=== PATIENT | male | born 1945 | race Caucasian/White ===

== ENCOUNTER → 2023-09-25 09:00 | Outpatient (REF) | payer OTHER, SELFPAY | LOC: DHSLP 09:00 | PROVIDERS: ATTENDING PHYSICIAN Internal Medicine | DX: G47.33 Obstructive sleep apnea (adult) (pediatric) (principal) | CPT/HCPCS: 95800 ==

== ENCOUNTER 2024-11-03 08:04 | Inpatient (IN) | payer OTHER, SELFPAY ==
[2024-11-03] VITALS (15 sets, daily range): BP systolic 140–200; BP diastolic 86–107; BMI 26.1
[2024-11-03 01:09] LABS: Glucose - Point of Care 159 mg/dl (70-99)
[2024-11-03 02:09] LABS: Glucose - Point of Care 128 mg/dl (70-99)
[2024-11-03] MEDS: OMNIPAQUE 50 ML PO (02:39)
[2024-11-03 02:54] LABS: Hematocrit 45.6 % (39.0-52.0); Hemoglobin 14.9 g/dL (13.0-18.0); Mean Corp Hgb Conc. 32.7 g/dL (33.0-37.0); Mean Corpuscular Volume 94.4 fL (80.0-94.0); Platelet Count 364 10^3/uL (130-400); Red Cell Dist. Width 13.5 % (11.5-14.5)
[2024-11-03 03:06] LABS: Glucose - Point of Care 167 mg/dl (70-99)
--- NOTE | 2024-11-03 03:08 | ED.GENMED ---
History of Present Illness
<Lissett Thompson MD - Last Filed: 11/03/24 10:24>
General
Chief Complaint: Blood Sugar Problem
Source: patient
Time Seen by Provider: 11/03/24 02:03
History of Present Illness
History of Present Illness:
This patient is an 78-year-old male with a history of pancreas removal years ago, tightly controlled diabetes with an insulin pump, states that he had an episode of hypoglycemia at approximate 11 PM tonight when his blood sugar was noted to be 26.
EMS was called and he consumed glucose and his repeat blood sugar was 150. EMS left. Then, about an hour later, he noted that his blood sugar was 83, which concerned him given that it was such a precipitous drop in his blood sugar in just an hour.
He presents emergency department because of this concern. Additionally, he notes that his abdomen feels generally bloated associated with nausea and dry heaves with started tonight. He denies fever, chills, chest pain, shortness of breath,
urinary symptoms, diarrhea, constipation. We just checked his blood sugar at 2 AM and it was noted to be 128. Patient does note that last week he was on a Medrol Dosepak which she finished on Saturday and made appropriate adjustments to his
insulin regimen. He denies the use of oral agents for diabetes.
Past History
<Lissett Thompson MD - Last Filed: 11/03/24 10:24>
Past History
ED Past Medical History: HTN and Other (Diabetes)
ED Past Surgical History: Other (Pancreas removal)
Patient has exhibited threatening behavior?: No
Social History
Tobacco: Non-smoker
Alcohol: Occasional
Drug: None
Personal:
Living: with family
Employment: Employed
Family History
Family History: Other (Noncontributory)
Phy Exam
<Lissett Thompson MD - Last Filed: 11/03/24 10:24>
Physical Exam
Physical Exam:
GENERAL: Alert , in no apparent distress
EYE: pupils equal and reactive
NECK: Supple, no significant adenopathy.
ENT: o/p clr, mmm.
CARDIAC: Regular rate and rhythm .
LUNGS: Clear breath sounds bilaterally, no acute respiratory distress, no wheezes/rales/rhonchi
ABDOMEN: Soft, nonspecific mild tenderness, no r/g, no cvat
NEUROLOGICAL: Alert and oriented, no focal neuro deficits
SKIN: Warm and dry, skin intact.
MUSCULOSKELETAL: No edema, well perfused.
PSYCH: Normal and appropriate interaction.
Course
<Lissett Thompson MD - Last Filed: 11/03/24 10:24>
Orders/Labs/Results
Orders:
Orders
11/03/24 02:19
CT Abd/pel (oral only)-[facility] Only Urgent
Comment:
Reason For Exam: hx whipple, now abd distention/n
Iohexol [Omnipaque] See Protocol PO NOW STA
11/03/24 02:42
Complete Blood Count/No Diff Urgent
Comprehensive Metabolic Panel Urgent
11/03/24 05:37
NG Tube [GI tube insertion- Treatment] ONCE
11/03/24 07:27
Admit/Transfer Patient As Directed
Co-Sign Provider:
Level of Care: Inpatient admission
Assign to:: Telemetry
Physician / Group: gorge/hospitalist
Diagnosis: jarrell CARRERO 2011
Reason for Telemetry: Arrhythmia
Date to Stop Telemetry: 11/06/24
Time to Stop Telemetry: 11:00
Reason for Hospitalization: jarrell CARRERO 2011
Expected length of stay greater than two midnights?: Yes
ELOS- Estimated Length of Stay in days: 3
I certify the patient meets the requirements for IP care: Yes
11/03/24 07:28
PRN Pain Medication Management As Directed
May give lesser potent ordered pain med per pt: Yes
preference::
Protocol:: Medication orders for pain may be administered in a
manner that supports deferring to patient preference
when the pt is:
- Requesting an ordered lesser potent pain medication.
Least to most potent pain medications are defined
as: acetaminophen < NSAID < tramadol < opioids
(morphine, oxycodone, hydromorphone).
- Requesting a lesser dose of the same medication IF
ORDERED.
- Requesting a less intrusive route of administration
if both routes are prescribed by the provider (PO <
IV).
11/03/24 07:29
Code Status As Directed
Resuscitation Status: Full Code
11/03/24 07:[address] Non Medication Order As Directed
Physician Order: Please reconcile, have Pharmacy reconcile med list this am, and call attending once updated
to have them order home meds .
11/06/24 11:00
DC Protocol for Telemetry ONCE
Abnormal Lab Results
11/03/24 11/03/24 11/03/24
01:08 02:07 02:42
WBC 12.3 H 10^3/uL
(4.8-10.8)
MCV 94.4 H fL
(80.0-94.0)
MCHC 32.7 L g/dL
(33.0-37.0)
MPV 10.9 H fL
(7.4-10.4)
Carbon Dioxide 35 H mmol/L
(22-30)
BUN 27 H mg/dl
(9-20)
POC Glucose 159 H mg/dl 128 H mg/dl
(70-99) (70-99)
11/03/24 11/03/24
03:04 04:27
WBC
MCV
MCHC
MPV
Carbon Dioxide
BUN
POC Glucose 167 H mg/dl 224 H mg/dl
(70-99) (70-99)
11/03/24 02:42
11/03/24 02:42
Vital Signs
Initial and Last Documented VS:
Initial Vital Signs
BP
140/99
11/03/24 01:04
Last Documented Vital Signs
Temp Pulse Resp BP Pulse Ox
98.7 F 69 21 153/95 97
11/03/24 08:23 11/03/24 08:23 11/03/24 08:23 11/03/24 08:23 11/03/24 08:23
<Bryan Dukes, DO - Last Filed: 11/03/24 05:38>
Orders/Labs/Results
Orders:
Orders
11/03/24 02:19
CT Abd/pel (oral only)-[facility] Only Urgent
Comment:
Reason For Exam: hx whipple, now abd distention/n
Iohexol [Omnipaque] See Protocol PO NOW STA
11/03/24 02:42
Complete Blood Count/No Diff Urgent
Comprehensive Metabolic Panel Urgent
11/03/24 05:37
NG Tube [GI tube insertion- Treatment] ONCE
11/03/24 07:27
Admit/Transfer Patient As Directed
Co-Sign Provider:
Level of Care: Inpatient admission
Assign to:: Telemetry
Physician / Group: gorge/hospitalist
Diagnosis: jarrell CARRERO 2011
Reason for Telemetry: Arrhythmia
Date to Stop Telemetry: 11/06/24
Time to Stop Telemetry: 11:00
Reason for Hospitalization: jarrell CARRERO 2011
Expected length of stay greater than two midnights?: Yes
ELOS- Estimated Length of Stay in days: 3
I certify the patient meets the requirements for IP care: Yes
11/03/24 07:28
PRN Pain Medication Management As Directed
May give lesser potent ordered pain med per pt: Yes
preference::
Protocol:: Medication orders for pain may be administered in a
manner that supports deferring to patient preference
when the pt is:
- Requesting an ordered lesser potent pain medication.
Least to most potent pain medications are defined
as: acetaminophen < NSAID < tramadol < opioids
(morphine, oxycodone, hydromorphone).
- Requesting a lesser dose of the same medication IF
ORDERED.
- Requesting a less intrusive route of administration
if both routes are prescribed by the provider (PO <
IV).
11/03/24 07:29
Code Status As Directed
Resuscitation Status: Full Code
11/03/24 07:[address] Non Medication Order As Directed
Physician Order: Please reconcile, have Pharmacy reconcile med list this am, and call attending once updated
to have them order home meds .
11/06/24 11:00
DC Protocol for Telemetry ONCE
Abnormal Lab Results
11/03/24 11/03/24 11/03/24
01:08 02:07 02:42
WBC 12.3 H 10^3/uL
(4.8-10.8)
MCV 94.4 H fL
(80.0-94.0)
MCHC 32.7 L g/dL
(33.0-37.0)
MPV 10.9 H fL
(7.4-10.4)
Carbon Dioxide 35 H mmol/L
(22-30)
BUN 27 H mg/dl
(9-20)
POC Glucose 159 H mg/dl 128 H mg/dl
(70-99) (70-99)
11/03/24 11/03/24
03:04 04:27
WBC
MCV
MCHC
MPV
Carbon Dioxide
BUN
POC Glucose 167 H mg/dl 224 H mg/dl
(70-99) (70-99)
11/03/24 02:42
11/03/24 02:42
Vital Signs
Initial and Last Documented VS:
Initial Vital Signs
BP
140/99
11/03/24 01:04
Last Documented Vital Signs
Temp Pulse Resp BP Pulse Ox
98.7 F 69 21 153/95 97
11/03/24 08:23 11/03/24 08:23 11/03/24 08:23 11/03/24 08:23 11/03/24 08:23
<Lissett Thompson MD - Last Filed: 11/03/24 10:24>
*Pulse Oximetry
SaO2: 95
Oxygen Mode of Delivery: Room air
<Bryan Dukes DO - Last Filed: 11/03/24 05:38>
*Pulse Oximetry
Patient hypoxic: no
*Critical Care Note
Total Time (30-74mins, 75-104mins- exclusive of procedures): Not Applicable
<Lissett Thompson MD - Last Filed: 11/03/24 10:24>
Update Note
Update Note:
Patient presents to the Emergency Department with _hypoglycemia
Number and Complexity of Problems Addressed at the Encounter
� Chronic conditions affecting care:
� Acute Exacerbation and/or Progression of Chronic Illness:
� Differential Diagnosis includes: But not limited to pump malfunction, acute infectious illness, intra-abdominal infection, etc. etc.
Amount and/or Complexity of Data to be Reviewed and Analyzed
� I performed an independent evaluation of and my interpretation is:
EKG:
CT:
Xrays:
Laboratory Studies: Mild leukocytosis
Other:
� Review of other/old records reveals:
� Clinical information was obtained by an independent historian:
� Prescriptions/Medications Considered but not given:
� Further testing considered but not performed:
Risk of Complications and/or Morbidity or Mortality of Patient Management
� Social determinants of health affecting care:
� Discussion with other providers (PCP, Hospitalists, Consultants, etc):
� Escalation of care including admission/observation vs risk of discharge considered:*Late entry 1024am on 11/03. Pt signed out pending CT at approx 4am to Dr Dukes.
5:37 AM care of patient was transition pending CT. CT concerning for small bowel obstruction. Will place NG tube. Patient understands and is comfortable with admission
<Bryan Dukes, DO - Last Filed: 11/03/24 05:38>
Update Note
Update Note:
Patient presents to the Emergency Department with _hypoglycemia
Number and Complexity of Problems Addressed at the Encounter
� Chronic conditions affecting care:
� Acute Exacerbation and/or Progression of Chronic Illness:
� Differential Diagnosis includes: But not limited to pump malfunction, acute infectious illness, intra-abdominal infection, etc. etc.
Amount and/or Complexity of Data to be Reviewed and Analyzed
� I performed an independent evaluation of and my interpretation is:
EKG:
CT:
Xrays:
Laboratory Studies: Mild leukocytosis
Other:
� Review of other/old records reveals:
� Clinical information was obtained by an independent historian:
� Prescriptions/Medications Considered but not given:
� Further testing considered but not performed:
Risk of Complications and/or Morbidity or Mortality of Patient Management
� Social determinants of health affecting care:
� Discussion with other providers (PCP, Hospitalists, Consultants, etc):
� Escalation of care including admission/observation vs risk of discharge considered:
5:37 AM care of patient was transition pending CT. CT concerning for small bowel obstruction. Will place NG tube. Patient understands and is comfortable with admission
ED Attending Note
<Lissett Thompson MD - Last Filed: 11/03/24 10:24>
-
Portions of this chart may have been created with voice recognition software.� Occasional wrong word or��sound alike� substitutions may have occurred due to the inherent limitations of voice recognition software.
Discharge Plan
Departure
Patient Disposition: Admit
Date of Disposition: 11/03/24
Time of Disposition: 05:37
Admit to: Med/Surg
Presentation/result/management discussed w/ accepting MD/DO: Hospitalist
Discharge Problem:
SBO (small bowel obstruction)
Interventions
Interventions:
*Risk Screen - Suicide Last Done: 11/03/24 01:18
*General Assessment Last Done: 11/03/24 01:18
*Neglect/Abuse Screening Last Done: 11/03/24 01:18
*ED- Fall Risk Assessment Last Done: 11/03/24 01:18
*ED COVID-19 Vaccine History Last Done: 11/03/24 01:18
ED- Neurological Assessment Last Done: 11/03/24 08:23
[2024-11-03 03:15] LABS: ALT (SGPT) 37 U/L (0-50); AST (SGOT) 39 U/L (17-59); Albumin 4.6 g/dl (3.5-5.0); Alkaline Phosphatase 63 U/L (38-126); Blood Urea Nitrogen 27 mg/dl (9-20); Calcium 9.9 mg/dl (8.4-10.2); Carbon Dioxide 35 mmol/L (22-30); Chloride 103 mmol/L (98-107); Estimated Creatinine Clearance 70 ml/min; Glucose 72 mg/dl (70-99); Potassium 4.1 mmol/L (3.5-5.1); Sodium 145 mmol/L (135-145); Total Protein 8.2 g/dl (6.3-8.2); eGFR > 60.00
[2024-11-03 04:28] LABS: Glucose - Point of Care 224 mg/dl (70-99)
--- NOTE | 2024-11-03 06:41 | HPS.HSE ---
Family Physician
-
Family Physician: Deep Bell
Chief Complaint
-
Labile blood sugar, nausea, and abdominal bloating
History of Present Illness
The patient is an 78-year-old gentleman with past medical history significant for Whipple procedure for pancreatic cancer in 2011, tightly controlled diabetes on an insulin pump, presented to the emergency department secondary to an episode of
hypoglycemia at 11 PM with blood sugar at 26. The patient called EMS, he received dextrose, and BS increased to 150. At that time EMS left, pt refused transfer to hospital, however an hour later the patient's blood sugar dropped to 83. The low
glucose was in addition to abdominal bloating, nausea and dry heaves that also started this past evening after eating at 3 pm. He denies any fevers, no chest pain, no shortness of breath, no urinary symptoms, no diarrhea, no blood loss, no
constipation. WBC is 12.3, CT scan of the abdomen and pelvis preliminary read shows distended stomach with multiple dilated loops of small bowel suspicious for obstruction.
NG tube was placed in the ED.
Medical History
Past Medical History
Past Medical History: Reports Cancer (Whipple procedure years ago for pancreatic cancer 2011), HTN, Hypothyroidism and IDDM (Insulin pump)
Past Surgical History: Reports Other (ipple 2011)
Social History
Tobacco: Non-smoker
Alcohol: None
Drug: None
Personal:
Living: With Family
Family History
Family History: Not pertinent
Allergies / Home Medications
Allergies reflects when Allergies were last updated in [facility].
Home Medications with original date entered in [facility]
Allergy/Medication List:
Allergies
Allergy/AdvReac Type Severity Reaction Status Date / Time
acetaminophen (From Percocet) Allergy hypotension Verified 06/26/22 03:05
azithromycin (From Zithromax) Allergy ARF Verified 06/26/22 03:05
cefaclor (From Ceclor) Allergy Hives Verified 06/26/22 03:05
celecoxib (From Celebrex) Allergy Rash Verified 06/26/22 03:05
diphenhydramine HCl (From Allergy Rash Verified 06/26/22 03:05
Benadryl)
fluticasone propionate (From Allergy Swelling Verified 06/26/22 03:05
Flonase)
midazolam HCl (From Versed) Allergy hypotension Verified 06/26/22 03:05
oxycodone HCl (From Percocet) Allergy hypotension Verified 06/26/22 03:05
Home Medications
Calcium 1 tab PO DAILY 05/28/10
Natural Fish Oil 15 ml PO DAILY 05/28/10
SENOKOT PRN constipation 05/28/10
Vitamin B 1 tab PO DAILY 05/28/10
amlodipine 10 mg tablet 10 mg PO DAILY 05/28/10
ascorbic acid (vitamin C) 1,000 mg tablet,extended release (Vitamin C ER) 1,000 mg PO DAILY 05/28/10
aspirin 81 mg tablet,delayed release 81 mg PO DAILY 05/28/10
docusate sodium 100 mg capsule (Dulcolax Stool Softener (docusate)) 100 mg PO PRN constipation 05/28/10
labetalol 200 mg tablet 200 mg PO BID 05/28/10
levothyroxine 100 mcg tablet (Synthroid) 100 mcg PO MOTUTHFRSA 05/28/10
levothyroxine 50 mcg tablet (Synthroid) 50 mcg PO SUWE 05/28/10
multivitamin (Pjy-Mevaeu-Njrvx tablet) 1 ea PO DAILY 05/28/10
pramipexole 0.25 mg tablet 0.25 mg PO QPM 05/28/10
sertraline 50 mg tablet 50 mg PO QPM 05/28/10
valsartan 80 mg tablet 80 mg PO DAILY 05/28/10
ciprofloxacin HCl 0.3 % eye drops (Ciloxan) 1 drp OPHTHALMIC .Q4H WHILE AWAKE #5 mL 01/30/14
tobramycin 0.3 %-dexamethasone 0.1 % eye drops,suspension 2 drp otic (ear) QID ##1 04/04/20
Review of Systems
-
A 12 point ROS was completed and negative except as noted: Yes
Physical Exam
Vital Signs
Vital Signs
Temp Pulse Resp BP Pulse Ox
97.6 F 66 14 168/88 95
11/03/24 01:18 11/03/24 06:00 11/03/24 06:00 11/03/24 06:00 11/03/24 06:00
Physical Exam
General: Well Developed, Well Nourished, No Apparent Distress, Comfortable and Conversant
HEENT: NormoCephalic, Anicteric and Moist mucous membranes
Respiratory: Clear
Cardiac: S1/S2 and Murmur
GI: Non Tender, Distended and Other (decreased bowel sounds, tinkling bowel sounds)
Musculoskeletal: No Clubbing, No Cyanosis and No Edema
Skin: Warm and Dry
Neuro: AO x 3 and No Motor Deficits
Psych: Calm
Laboratory Results
-
11/03/24 02:42
11/03/24 02:42
Laboratory Results
Total Bilirubin 0.7 mg/dl (0.2-1.3) 11/03/24 02:42
AST 39 U/L (17-59) 11/03/24 02:42
ALT 37 U/L (0-50) 11/03/24 02:42
Alkaline Phosphatase 63 U/L (38-126) 11/03/24 02:42
Data Reviewed
-
CT Scan: Report Reviewed by me (CT report as per below)
Impression/Plan
-
IMPRESSION:The patient is an 78-year-old gentleman with past medical history significant for Whipple procedure for pancreatic cancer in 2011, tightly controlled diabetes on an insulin pump, presented to the emergency department secondary to an
episode of hypoglycemia at 11 PM with blood sugar at 26. The patient called EMS, he received dextrose, and BS increased to 150. At that time EMS left, pt refused transfer to hospital, however an hour later the patient's blood sugar dropped to 83.
The low glucose was in addition to abdominal bloating, nausea and dry heaves that also started this past evening after eating at 3 pm. He denies any fevers, no chest pain, no shortness of breath, no urinary symptoms, no diarrhea, no blood loss, no
constipation. WBC is 12.3, CT scan of the abdomen and pelvis preliminary read shows distended stomach with multiple dilated loops of small bowel suspicious for obstruction.
NG tube was placed in the ED.
# Abdominal pain, concern for small bowel obstruction, associated with leukocytosis and abdominal distension w decreased bowel sounds
- Preliminary read on CT of the abdomen pelvis shows stomach distended with multiple dilated loops of small bowel suspicious for obstruction.
- NG tube ordered in place in the emergency department intermittent low wall suction
- N.p.o.
- IV fluids
- Surgery consultation
-GI consultation, Dr. Esqueda is his GI specialist
# History of pancreatic cancer status post Whipple procedure
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
-will continue to use his home insulin pump and monitor glucose on home sensor
#Essential HTN
#Hypothyroidism
Med rec to be performed this am by pharmacy-perform med rec and adjust home meds
DVT proph-SCDs
Full Code
--- NOTE | 2024-11-03 08:58 | CM ---
CM reviewed chart and met with pt bedside in ED. Lives with his and MIL in 2 story home, [address], first floor half BA, second floor BR/full BA. Independent in ADLs, personal care and ambulation at baseline. Has stair glide.
No hx VN but is familiar with [facility], no hx SNF
PCP: Deep Bell
Pharmacy: [facility]
CM will continue to follow for discharge planning needs.
--- NOTE | 2024-11-03 09:18 | CON.GI ---
Medical History
Chief Complaint / HPI
Chief Complaint: Labile blood sugar levels, abdominal pain associated with nausea
History of Present Illness:
Patient is an 78-year-old male with past medical history of pancreatic cancer, underwent Whipple's procedure with splenectomy, cholecystectomy, entire pancreas removal and removed portion of small at this time. He has been on insulin pump since
2011 and has had no issues with his blood sugar with occasional sensor issues he has been doing well with that. He also has past medical history of hypothyroidism, polymyalgia rheumatica treated with steroids, fibromyalgia, essential hypertension,
restless leg syndrome, BPH, hypothyroidism, and recently finished Medrol pack for gout flare of right knee.
He was in his usual state of health last night around 9 PM, and he was doing his leg regular chores when he suddenly felt very sick, it almost felt like something did not went well with his stomach, he had his dinner around 5 to 6 PM. He checked
his blood sugar and it was 23 so they called the EMS. They gave him IV dextrose and asked him to eat something in front of them. He ate a bagel with cream cheese, which apparently he had been ate but did not remember at this time because he was so
out of it. He felt fine after that and he did not want to go to the hospital also the EMS went back. Later that night around 2 AM he felt very sick again and he felt like his stomach was very bloated and distended and he felt nauseous and at that
time he checked his blood sugar and he noticed a precipitous fall in his blood sugar. He decided to come to the ER and was brought to the ER by EMS.
Abdominal imaging done in the ERFor abdominal CT, patient had to drink contrast in the ER which made him vomit and that made him feel a little better. Imaging results were consistent with small bowel obstruction given dilated small bowel loops,
leukocytosis on blood work, distended and tender abdomen so an NG tube was passed for suspected small bowel obstruction.
He has had about 500 mL of NG output since 3 AM and has been feeling fine. His abdomen is still diffusely tender but it is very very mild as compared to before. It still distended but he feels that it is at his baseline.
Of note, patient was having difficulties with bowel movements while he was using a lot of Colace to help with bowel movement. His last bowel movement was yesterday morning. He also noticed that due to his lack of pancreas his stools were initially
a silvery color but now he noticed that they were getting darker in color but he did not feel that they were black or had any blood. He thought it was normal brown color due to using a lot of orange juice and proteins.
Past Medical History
Past Medical History: Other (Cancer (Whipple procedure years ago for pancreatic cancer 2011), HTN, Hypothyroidism and IDDM (Insulin pump) since 2011, restless leg syndrome, fibromyalgia, prior history of polymyalgia rheumatica, gout)
Past Surgical History: Other ((Whipple 2011))
Social History
Tobacco: Former Smoker (Quit 20 years ago)
Alcohol: Daily (About 2 beers a day, considering to quit)
Drug: None
Personal:
Living: With Family (Lives with and [id number], and his cat Sheila)
Family History
Family History: Reviewed & Not Pertinent
Allergies / Home Medications
Allergy/AdvReac Type Severity Reaction Status Date / Time
acetaminophen (From Percocet) Allergy hypotension Verified 06/26/22 03:05
azithromycin (From Zithromax) Allergy ARF Verified 06/26/22 03:05
cefaclor (From Ceclor) Allergy Hives Verified 06/26/22 03:05
celecoxib (From Celebrex) Allergy Rash Verified 06/26/22 03:05
diphenhydramine HCl (From Allergy Rash Verified 06/26/22 03:05
Benadryl)
fluticasone propionate (From Allergy Swelling Verified 06/26/22 03:05
Flonase)
midazolam HCl (From Versed) Allergy hypotension Verified 06/26/22 03:05
oxycodone HCl (From Percocet) Allergy hypotension Verified 06/26/22 03:05
�Medication �Instructions �Recorded
labetalol 200 mg tablet 400 mg PO BID 05/28/10
sertraline 50 mg tablet 50 mg PO HS 05/28/10
Patient Own Insulin Pump 1 sliding scale dose SC .NOVOLOG 11/03/24
amlodipine 5 mg tablet (Norvasc) 5 mg PO BID 11/03/24
chlorthalidone 50 mg tablet 50 mg PO DAILY 11/03/24
cholecalciferol (vitamin D3) 125 250 mcg PO DAILY 11/03/24
mcg (5,000 unit) tablet (Vitamin
D3)
coQ10 (ubiquinol) 100 mg capsule 100 mg PO HS 11/03/24
ferrous sulfate 325 mg (65 mg 325 mg PO BID 11/03/24
iron) tablet
finasteride 5 mg tablet 5 mg PO QPM 11/03/24
levothyroxine 150 mcg tablet 150 mcg PO MoTuWeThFrSa@79911/03/24
(Synthroid)
levothyroxine 150 mcg tablet 225 mcg PO NESS@79911/03/24
(Synthroid)
nsravi-orjsbvnq-eaepuzp 3 cap PO AC 11/03/24
24,000-76,000-120,000 unit
capsule,delayed rel (Creon)
losartan 100 mg tablet 100 mg PO DAILY 11/03/24
magnesium oxide 500 mg capsule 1,000 mg PO DAILY 11/03/24
magnesium oxide 500 mg capsule 500 mg PO QPM 11/03/24
mecobalamin-levomefolate 1 tab PO BID 11/03/24
calcium-pyridoxal phos 2 mg-3
mg-35 mg tablet
omega 6-xyo-mrw-fish oil 1,600 15 ml PO DAILY 11/03/24
mg-500 mg-800 mg/5 mL oral liquid
(Fish Oil)
omeprazole 20 mg tablet,delayed 20 mg PO DAILY 11/03/24
release
potassium chloride 10 mEq 30 meq PO BID 11/03/24
tablet,extended release
pramipexole 0.5 mg tablet 0.5 mg PO HS 11/03/24
therapeutic multivitamin 1 tab PO HS 11/03/24
Review of Systems
-
All other systems: A 12 pt ROS was Negative except as stated above in HPI
Vital Signs
Temp Pulse Resp BP Pulse Ox
98.7 F 69 21 153/95 97
11/03/24 08:23 11/03/24 08:23 11/03/24 08:23 11/03/24 08:23 11/03/24 08:23
Physical Exam
Exam
General: Well Developed and No Apparent Distress
HEENT: Anicteric and Other (NG tube in place, output 500 mL since last night)
Respiratory: Clear; Negative Wheezes, Rales or Rhonchi
Cardiac: S1/S2 and Murmur (Ejection systolic murmur in aortic area)
GI: Soft, Tender (Diffusely tender), Distended and Other (Decreased bowel sounds)
Musculoskeletal: No Clubbing, No Cyanosis and No Edema
Skin: Warm and Dry
Neuro: Awake and No Motor Deficits
Psych: Calm
Results
WBC 12.3 10^3/uL (4.8-10.8) H 11/03/24 02:42
Hgb 14.9 g/dL (13.0-18.0) 11/03/24 02:42
Hct 45.6 % (39.0-52.0) 11/03/24 02:42
MCV 94.4 fL (80.0-94.0) H 11/03/24 02:42
Plt Count 364 10^3/uL (130-400) 11/03/24 02:42
Sodium 145 mmol/L (135-145) 11/03/24 02:42
Potassium 4.1 mmol/L (3.5-5.1) 11/03/24 02:42
Chloride 103 mmol/L (98-107) 11/03/24 02:42
Carbon Dioxide 35 mmol/L (22-30) H 11/03/24 02:42
BUN 27 mg/dl (9-20) H 11/03/24 02:42
Creatinine 0.9 mg/dL (0.7-1.3) 11/03/24 02:42
Calcium 9.9 mg/dl (8.4-10.2) 11/03/24 02:42
Total Bilirubin 0.7 mg/dl (0.2-1.3) 11/03/24 02:42
AST 39 U/L (17-59) 11/03/24 02:42
ALT 37 U/L (0-50) 11/03/24 02:42
Alkaline Phosphatase 63 U/L (38-126) 11/03/24 02:42
Diagnostic Image Results:
Prior GI Procedures:
EGD:
2022(F/u on varices)
Impression: - Grade I esophageal varices.
- Erythematous mucosa in the gastric body. Biopsied.
- A classic Whipple was found, characterized by
multiple small nonbleeding ectatic vessels.
- Normal examined jejunum.
2017(Heme positive stools)
Impression: - Z-line irregular, at the gastroesophageal junction.
Biopsied.
- Grade I esophageal varices.
- Erythematous mucosa in the antrum. Biopsied.
- Patent pancreaticoduodenectomy (Whipple),
characterized by scattered ectasias at the anastomosis
was found. Treated with bipolar cautery.
Colonoscopy:
2022
Impression: - One 5 mm polyp in the transverse colon, removed with
a hot snare. Resected and retrieved.
- Diverticulosis in the sigmoid colon.
2015
Impression: - One 5 mm polyp in the transverse colon. Resected and
retrieved.
- One 2 mm polyp in the cecum. Resected and retrieved.
- One 3 mm polyp in the ascending colon. Resected and
retrieved.
- Diverticulosis in the sigmoid colon and in the
descending colon.
2012
Impression: - One 10 mm polyp in the ascending colon. Resected and
retrieved.
- Diverticulosis in the sigmoid colon.
- Internal hemorrhoids.
- One hemostatic clip was successfully placed.
Assessment / Plan
-
Impression
Patient is an 78-year-old male admitted with small bowel obstruction and labile blood sugar levels. History of pancreatic cancer with Whipple's procedure. Currently on pancreatic enzyme replacement.
Assessment/plan
Leukocytosis
Labile blood sugar levels
Partial small bowel obstruction could be related to-slowing of gut motility given age, use of pramipexole, steroids, and also constipation
Keep n.p.o./bowel rest
NG tube with low intermittent suction
Continue PPI
IV fluids
Monitor blood pressure
Monitor blood sugar levels
Serial abdominal exams
Anticipate hospital stay for couple of days
Advance diet as tolerated
Consider General Surgery consult
DVT prophylaxis SCDs
CODE STATUS-full code
-
-
Thank you for consultation and allowing me to participate in the patient's care. Please call the sed special education teacher GI physician during the after hours with any questions or concerns.
[2024-11-03] MEDS: PROTONIX IV 40 MG IV (10:25)
[2024-11-03] MEDS: TRANDATE 10 MG IV ×2 (10:26→20:04)
--- NOTE | 2024-11-03 11:16 | CON.GS ---
Addendum entered and electronically signed by Ned Sarkar MD 11/03/24 17:23:
Patient seen and examined.
Patient is an 78 yo M with a PMH of anxiety/depression, HTN, hypothyroidism, BPH, and pancreatic cancer s/p Whipple procedure c/b positive margins with subsequent total pancreatectomy in 2011 c/b IDDM. Mr. Beck presents with 24 hours of abdominal
discomfort and a generalized unwell feeling. He states that his symptoms began somewhat acutely yesterday afternoon. He states that he received an alarm on his glucometer that his blood sugar was low prompting him to eat more food, however, his
blood sugar remained low prompting him to call EMS. He reports a single bout of emesis after attempting to drink contrast for his CT scan. He denies any unusual food intake or high fiber food intake. He reports continuing to pass flatus. Last
bowel movement was nonbloody yesterday. He reports improvement in his symptoms with placement of the NGT. Denies any prior history of bowel obstructions. He denies any significant issues with diabetes control. He states that he is abdomen is
chronically bloated.
Gen: NAD
HEENT: no NGT output since arriving from the ED
Abd: soft, NT, moderate distension (patient reports distention is currently at baseline), non-peritoneal, chevron incision well healed, non-peritoneal
Labs and CT scan were reviewed
Patient is an 78 yo M p/w abdominal discomfort likely secondary to a partial SBO possibly related to delayed gastric emptying
The natural history and pathophysiology of bowel obstructions and gastroparesis were reviewed. CT scan imaging was reviewed. Study limited by lack of contrast. No evidence of pneumatosis or free air, no clear evidence of a mesenteric swirl.
Evidence of distended and fecalized stomach, as well as dilated loops of small bowel without a clear transition point. There appears to be air and thickened stool within the colon. Final report is pending. Recommend continue medical management.
Continue with NGT decompression; will check an abdominal x-ray given lack of output since presenting to the floor. Possible that the lack of output is due to the thickened nature of his gastric contents. Recommend UGI and SBFT tomorrow to assess
for gastric emptying and degree of bowel obstruction, as well as potential therapeutic benefit. Further medical management including motility agents and/or stool softeners pending his recovery and this study. All questions answered.
-- No plans for surgery at this time
-- NPO, NGT decompression (X-ray to confirm NGT placement)
-- UGI/SBFT tomorrow
Original Note:
Medical History
-
Chief Complaint: concern for SBO
History of Present Illness:
78yoM PMH pancreatic cancer s/p Whipple and total pancreatectomy in 2011 presenting with concerns of SBO.
Pt reports going home from dinner last night feeling 'off' without pain or distinct discomfort. Since his surgery, he claims to never have felt this before. He received an alarm from his glucometer that his blood sugar was dropping which prompted
him to eat more food. However, his sugar continued to drop when EMS arrived. After EMS gave him dextrose, he felt better and denied transportation. Shortly after trying to eat more food to stabilize his sugars, his monitor alerted him of further
dropping sugars that prompted him to call EMS once again and arrive to the ED. NG tube placed.
Denies fever, chills, nausea or pain. Pt stated that he had one bout of emesis with the oral contrast for the CT that relieved his bloating, 'off' feeling. Denies other bouts of emesis. Reports passing minimal gas. Last BM yesterday. Pt reports
relief with NG. Pt denies feeling distended beyond baseline since NG placement. Denies hx adhesions.
Past Medical History
Past Medical History: HTN, Hypothyroidism, IDDM and Other (Polymalgia rheumatica, fibromyalgia, BPH)
Past Surgical History: Other (Whipp2011)
Allergies / Home Medications
Allergy/AdvReac Type Severity Reaction Status Date / Time
acetaminophen (From Percocet) Allergy hypotension Verified 06/26/22 03:05
azithromycin (From Zithromax) Allergy ARF Verified 06/26/22 03:05
cefaclor (From Ceclor) Allergy Hives Verified 06/26/22 03:05
celecoxib (From Celebrex) Allergy Rash Verified 06/26/22 03:05
diphenhydramine HCl (From Allergy Rash Verified 06/26/22 03:05
Benadryl)
fluticasone propionate (From Allergy Swelling Verified 06/26/22 03:05
Flonase)
midazolam HCl (From Versed) Allergy hypotension Verified 06/26/22 03:05
oxycodone HCl (From Percocet) Allergy hypotension Verified 06/26/22 03:05
�Medication �Instructions �Recorded �Confirmed �Type
labetalol 200 mg tablet 400 mg PO BID 05/28/10 11/03/24 History
sertraline 50 mg tablet 50 mg PO HS 05/28/10 11/03/24 History
Patient Own Insulin Pump 1 sliding scale dose SC .NOVOLOG 11/03/24 11/03/24 History
amlodipine 5 mg tablet (Norvasc) 5 mg PO BID 11/03/24 11/03/24 History
chlorthalidone 50 mg tablet 50 mg PO DAILY 11/03/24 11/03/24 History
cholecalciferol (vitamin D3) 125 250 mcg PO DAILY 11/03/24 11/03/24 History
mcg (5,000 unit) tablet (Vitamin
D3)
coQ10 (ubiquinol) 100 mg capsule 100 mg PO HS 11/03/24 11/03/24 History
ferrous sulfate 325 mg (65 mg 325 mg PO BID 11/03/24 11/03/24 History
iron) tablet
finasteride 5 mg tablet 5 mg PO QPM 11/03/24 11/03/24 History
levothyroxine 150 mcg tablet 150 mcg PO MoTuWeThFrSa@79911/03/24 11/03/24 History
(Synthroid)
levothyroxine 150 mcg tablet 225 mcg PO NESS@79911/03/24 11/03/24 History
(Synthroid)
yhaymg-fofszudf-mqbelwx 3 cap PO AC 11/03/24 11/03/24 History
24,000-76,000-120,000 unit
capsule,delayed rel (Creon)
losartan 100 mg tablet 100 mg PO DAILY 11/03/24 11/03/24 History
magnesium oxide 500 mg capsule 1,000 mg PO DAILY 11/03/24 11/03/24 History
magnesium oxide 500 mg capsule 500 mg PO QPM 11/03/24 11/03/24 History
mecobalamin-levomefolate 1 tab PO BID 11/03/24 11/03/24 History
calcium-pyridoxal phos 2 mg-3
mg-35 mg tablet
omega 6-kmc-kva-fish oil 1,600 15 ml PO DAILY 11/03/24 11/03/24 History
mg-500 mg-800 mg/5 mL oral liquid
(Fish Oil)
omeprazole 20 mg tablet,delayed 20 mg PO DAILY 11/03/24 11/03/24 History
release
potassium chloride 10 mEq 30 meq PO BID 11/03/24 11/03/24 History
tablet,extended release
pramipexole 0.5 mg tablet 0.5 mg PO HS 11/03/24 11/03/24 History
therapeutic multivitamin 1 tab PO HS 11/03/24 11/03/24 History
Review of Systems
-
History Source: Patient
All other systems: Negative unless noted
Constitutional: No Symptoms
EENT: No Symptoms
Respiratory: No Symptoms
Cardiac: No Symptoms
: No Symptoms
Musculoskeletal: No Symptoms
Skin: No Symptoms
Neurological: No Symptoms
A 10 point review of systems was completed, and was negative except as per HPI.
Physical Exam
Vital Signs
Temp Pulse Resp BP Pulse Ox
98.7 F 68 21 146/74 97
11/03/24 08:23 11/03/24 10:26 11/03/24 08:23 11/03/24 10:26 11/03/24 08:23
11/02/24 11/03/24 11/04/24
06:59 06:59 06:59
Actual Weight 89.4 kg
Lab Results
11/03/24 02:42
11/03/24 02:42
WBC 12.3 10^3/uL (4.8-10.8) H 11/03/24 02:42
Hgb 14.9 g/dL (13.0-18.0) 11/03/24 02:42
Hct 45.6 % (39.0-52.0) 11/03/24 02:42
Plt Count 364 10^3/uL (130-400) 11/03/24 02:42
Physical Exam
General: Well Developed, No Apparent Distress and Comfortable
HEENT: Normocephalic, Anicteric and Atraumatic
Respiratory: Non Labored Respirations
GI: Soft, Non Tender, Incisions and Other (NG tube draining light yellow fluid in the morning but exam in the afternoon no drainage. nonperitoneal, distended to patient report baseline)
Musculoskeletal: No Edema
Skin: Warm and Dry
Neuro: AO x 3 and Nonfocal/Grossly Intact
Psych: Calm
Data Reviewed
-
CT Scan: Image Personally Visualized and interpreted
Labs: Labs Reviewed by me
Assessment / Plan
-
78yoM [facility] Whipple and total pancreatectomy 2011 presenting with concern of SBO. Pending final read for CT, possible SBO. Nontoxic appearing. No clinical concern for strangulation or necrotic bowel. Appropriate for medical management. NG flushed with
water with no retur on suction. Concern for placement.
Plan
Abdmonal xray to determine NG placement
Small bowel follow through to reassess obstruction
Bowel rest: NG tube to suction. NPO
Transition PO medications to IV or hold
Continue to monitor for clinical changes
--- NOTE | 2024-11-03 11:59 | W.PN.UPDATE ---
Update Note
Progress Note Update
Nonbillable note
General: Well Developed, Well Nourished, No Apparent Distress, Comfortable and Conversant
HEENT: NormoCephalic, Anicteric and Moist mucous membranes,+NGT
Respiratory: Clear
Cardiac: S1/S2 and Murmur
GI: Non Tender, Distended and Other (decreased bowel sounds)
Musculoskeletal: No Edema
Skin: Warm and Dry
Neuro: AO x 3 and No Motor Deficits
Psych: Calm
Abdominal pain, concern for small bowel obstruction with abdominal distention
- Preliminary read on CT of the abdomen pelvis shows stomach distended with multiple dilated loops of small bowel suspicious for obstruction. Final CT read pending
Continue with NG tube
Surgery evaluation
N.p.o.
Fluid
-GI consultation, Dr. Esqueda is his GI specialist
IDDM with home insulin pump
And multiple hypoglycemic episode last night prior to hospitalization
Continue to monitor sugar
use dextrose if needed
-will continue to use his home insulin pump and monitor glucose on home sensor
#Essential HTN
Hold p.o. meds at this time
Labetalol 10 mg IV twice daily, hydralazine as needed for now
#Hypothyroidism
Continue to hold Synthroid, will use IV tolerated if remains n.p.o. for 48 hours
GERD
IV PPI
History of restless leg syndrome
History of fibromyalgia
History of polymyalgia rheumatica
# History of pancreatic cancer status post Whipple procedure
DVT proph-SCDs
Full Code
[2024-11-03 13:02] LABS: Glucose - Point of Care 130 mg/dl (70-99)
[2024-11-03] MEDS: NSS 1000 IV (14:13)
[2024-11-03] MEDS: PT'S OWN INSULIN PUMP - NovoLOG 0.2 UNIT SC ×2 (14:19→18:05)
[2024-11-03] MEDS: APRESOLINE 5 MG IV (14:33)
[2024-11-03 18:02] LABS: Glucose - Point of Care 109 mg/dl (70-99)
[2024-11-03] MEDS: PT'S OWN INSULIN PUMP - NovoLOG SC ×2 (18:05→19:52)
[2024-11-03 23:51] LABS: Glucose - Point of Care 92 mg/dl (70-99)
[2024-11-03] MEDS: PT'S OWN INSULIN PUMP - NovoLOG 0.05 UNIT SC (23:53)
[2024-11-04] VITALS (10 sets, daily range): BP systolic 84–175; BP diastolic 39–104
[2024-11-04] MEDS: APRESOLINE 5 MG IV ×2 (04:12→19:59)
[2024-11-04 06:06] LABS: Glucose - Point of Care 99 mg/dl (70-99)
[2024-11-04] MEDS: PT'S OWN INSULIN PUMP - NovoLOG SC ×4 (06:22→21:10)
[2024-11-04] MEDS: TRANDATE 10 MG IV (07:39)
[2024-11-04] MEDS: PROTONIX IV 40 MG IV (07:40)
--- NOTE | 2024-11-04 07:44 | W.PN.GI.CBS2 ---
Addendum entered and electronically signed by Glo Marcum DO 11/04/24 09:18:
The patient was seen and examined by me independently in collaboration with the nurse practitioner.
Past medical history/social history/medications/allergies/family history reviewed.
Lab data and imaging data reviewed.
78-year-old male admitted with small bowel obstruction and labile blood sugar levels. History of pancreatic cancer with Whipple's procedure. Currently on pancreatic enzyme replacement.
-NGT for decompression, clinically appears well
-passing gas, 3 BMs overnight, suspect only partial SBO
-Xray shows large amount of fecal material in descending and sigmoid colon, has redundant colon
-PPI
-UGI w/ SBFT today
-Surgery following
Original Note:
Today's Communication / Plan
-
for UGI/SBFT
NPO/IVF
NGT decompression
+ several stools overnight
Continue PPI
appreciate surgical recs
cont ambulation
Assessment / Plan
-
Impression
Patient is an 78-year-old male admitted with small bowel obstruction and labile blood sugar levels. History of pancreatic cancer with Whipple's procedure. Currently on pancreatic enzyme replacement.
11/03 X ray
1. Nasogastric tube in place with the tip terminating in the gastric fundus.
2. Severe small bowel distention (some loops filled with fecal-like material).
3. Large amount of fecal material in the descending and sigmoid colon.
4. Previous Whipple surgery.
Assessment/plan
Leukocytosis
Labile blood sugar levels
Partial small bowel obstruction could be related to-slowing of gut motility given age, use of pramipexole, steroids, and also constipation
increased stool on imaging
PLAN:
for UGI/SBFT
NPO/IVF
NGT decompression
+ several stools overnight
Continue PPI
appreciate surgical recs
DVT prophylaxis SCDs
CODE STATUS-full code
Subjective
Subjective
Date of Service: November 04, 2024
+ stools overnight total 450ml output for NGT c/o diffuse pain with fibromyalgia
Objective
Data Reviewed
Laboratory Data:
Laboratory Results
Total Bilirubin 0.7 mg/dl (0.2-1.3) 11/03/24 02:42
AST 39 U/L (17-59) 11/03/24 02:42
ALT 37 U/L (0-50) 11/03/24 02:42
Alkaline Phosphatase 63 U/L (38-126) 11/03/24 02:42
Vital Signs and I&O:
Vital Signs
Temp Pulse Resp BP Pulse Ox
98.1 F 62 18 166/102 97
11/04/24 03:45 11/04/24 04:12 11/04/24 03:45 11/04/24 06:21 11/04/24 03:45
I&O
11/03/24 11/04/24 11/05/24
06:59 06:59 06:59
Intake Total 800 / 800
Output Total 450 / 450
Balance 350 / 350
Physical Exam
Physical Exam
HEENT: Anicteric and Moist mucous membranes
Cardiology: Normal Sinus Rhythm
Pulmonary: Clear
GI: Soft, Non Distended, Tender and Other (NGT with whitish thin drainage )
Extremities: No Edema
Neuro: Non Focal
[2024-11-04 08:08] LABS: Hematocrit 46.3 % (39.0-52.0); Hemoglobin 15.5 g/dL (13.0-18.0); Mean Corp Hgb Conc. 33.5 g/dL (33.0-37.0); Mean Corpuscular Volume 92.0 fL (80.0-94.0); Nucleated Red Blood Cells % 0 % (-); Platelet Count 333 10^3/uL (130-400); Red Cell Dist. Width 13.5 % (11.5-14.5)
[2024-11-04 08:42] LABS: Blood Urea Nitrogen 19 mg/dl (9-20); Calcium 9.4 mg/dl (8.4-10.2); Carbon Dioxide 30 mmol/L (22-30); Chloride 102 mmol/L (98-107); Estimated Creatinine Clearance 90 ml/min; Glucose 84 mg/dl (70-99); Magnesium 1.6 mg/dl (1.6-2.3); Potassium 3.4 mmol/L (3.5-5.1); Sodium 140 mmol/L (135-145); eGFR > 60.00
[2024-11-04 10:05] LABS: Glycohemoglobin (HgbA1c) 6.3 % (4.0-5.6)
--- NOTE | 2024-11-04 10:43 | W.PN.GS2 ---
Addendum entered and electronically signed by Ottoniel Walton MD 11/04/24 15:28:
I saw and examined the patient.
The resident's note was reviewed and I agree with the note.
Comment: Improved. Denies n/v. abd exam benign. SBFT reviewed, transit to colon 60 mins. NGT DC'ed. Start cld, if no issues would adv to [facility] tomorrow.
Original Note:
Today's Communication / Plan
-
Plan reviewed with attending.
Assessment / Plan
-
78 yo M with a PMH of anxiety/depression, HTN, hypothyroidism, BPH, and pancreatic cancer s/p Whipple procedure c/b positive margins with subsequent total pancreatectomy in 2011 c/b IDDM here for SBO. Symptoms of SBO clinically resolved with recent
BM, no discomfort or new distention. SBFT today to confirm resolution.
Plan
Follow up SBFT
If scan is unremarkable, advance diet as tolerated. Remove NG. Begin clear liquids.
Subjective Data
-
Date of Service: November 04, 2024
78yoM PMH pancreatic cancer s/p Whipple and total pancreatectomy in 2011 here for SBO.
Pt reports resolved symptoms. Denies nausea, vomiting, abdominal discomfort. Pt reports 3 formed BM since yesterday. NG confirmed in place and output 450ml over 24hrs. Minimal output this morning under 100ml.
Objective Data
-
Intake and Output
11/03/24 11/04/24 11/05/24
06:59 06:59 06:59
Intake Total 800 / 800
Output Total 450 / 450
Balance 350 / 350
Intake:
IV fluids (Total) 800 / 800
Output:
Gastrointestinal tube output ( 450 / 450
Total)
Tehama Sump 100 / 100
Other:
Number of approximated MODERATE 6
amounts of urine
Number of approximated LARGE 2
amounts of urine
Vital Signs
Temp Pulse Resp BP Pulse Ox
98.1 F 62 18 153/90 99
11/04/24 07:00 11/04/24 07:00 11/04/24 07:00 11/04/24 07:00 11/04/24 08:00
Lab Results
11/04/24 06:44
11/04/24 06:44
Calcium 9.4 mg/dl (8.4-10.2) 11/04/24 06:44
Magnesium 1.6 mg/dl (1.6-2.3) 11/04/24 06:44
Total Bilirubin 0.7 mg/dl (0.2-1.3) 11/03/24 02:42
AST 39 U/L (17-59) 11/03/24 02:42
ALT 37 U/L (0-50) 11/03/24 02:42
Alkaline Phosphatase 63 U/L (38-126) 11/03/24 02:42
Total Protein 8.2 g/dl (6.3-8.2) 11/03/24 02:42
Albumin 4.6 g/dl (3.5-5.0) 11/03/24 02:42
Physical Exam
-
General: Well Developed, No Apparent Distress and Comfortable
HEENT: Normocephalic, Anicteric and Atraumatic
Respiratory: Non Labored Respirations
GI: Soft, Non Tender, Well healed, old incision, NG tube in place minimally draining light yellow fluid, nonperitoneal, distended to patient report baseline
Musculoskeletal: No Edema
Skin: Warm and Dry
Neuro: AO x 3 and Nonfocal/Grossly Intact
Patient has a dean catheter: No
Patient has a central line: No
--- NOTE | 2024-11-04 11:11 | W.PN.HOSP.TC ---
Addendum entered and electronically signed by Eagle Lindsay MD 11/04/24 13:27:
Upper GI series noted. Per surgery will start clears and DC NG tube. Will start some of his p.o. medications as well.
Original Note:
Today's Communication/Plan
-
Monitor vital signs and see plan
Small bowel follow-through today
N.p.o.
Restart p.o. meds when patient is able to take p.o.
Assessment / Plan
Assessment / Plan
General: Well Developed, Well Nourished, No Apparent Distress, Comfortable and Conversant
HEENT: NormoCephalic, Anicteric and Moist mucous membranes,+NGT
Respiratory: Clear
Cardiac: S1/S2 and Murmur
GI: Non Tender, less distended
Musculoskeletal: No Edema
Neuro: AO x 3 and No Motor Deficits
Psych: Calm
Abdominal pain, concern for small bowel obstruction with abdominal distention
- CT with small bowel obstruction, moderate amount of stool in colon.
Continue with NG tube per surgery
Surgery following
N.p.o.
Small bowel follow-through today
-GI consultation, Dr. Esqueda is his GI specialist
IDDM with home insulin pump
And multiple hypoglycemic episode last night prior to hospitalization
Continue to monitor sugar
use dextrose if needed
-will continue to use his home insulin pump and monitor glucose on home sensor
#Essential HTN
Hold p.o. meds at this time, restart if able to take p.o.
Labetalol 10 mg IV twice daily, hydralazine as needed for now
#Hypothyroidism
Continue to hold Synthroid, will use IV tolerated if remains n.p.o. for 48 hours
GERD
IV PPI
History of restless leg syndrome
History of fibromyalgia
History of polymyalgia rheumatica
# History of pancreatic cancer status post Whipple procedure
DVT proph-SCDs
Full Code
Anticipated Discharge: 24 - 48 hours
Subjective/Interval History
-
Date of Service: November 04, 2024
Denies nausea
Objective Data
-
Labs:
Laboratory Results
11/04/24
06:44
WBC 11.9 H
Hgb 15.5
Hct 46.3
Plt Count 333
Sodium 140
Potassium 3.4 L
Chloride 102
Carbon Dioxide 30
BUN 19
Creatinine 0.7
Glucose 84
Calcium 9.4
Vital Signs:
Vital Signs
Temp Pulse Resp BP Pulse Ox
98.1 F 62 18 153/90 99
11/04/24 07:00 11/04/24 07:00 11/04/24 07:00 11/04/24 07:00 11/04/24 08:00
I&O
11/03/24 11/04/24 11/05/24
06:59 06:59 06:59
Intake Total 800 / 800
Output Total 450 / 450
Balance 350 / 350
[2024-11-04 12:06] LABS: Glucose - Point of Care 86 mg/dl (70-99)
[2024-11-04] MEDS: COZAAR 100 MG PO (14:15)
[2024-11-04] MEDS: NORVASC 5 MG PO ×2 (14:15→19:58)
--- NOTE | 2024-11-04 14:28 | PTCARENOTE ---
Order was placed to remove the pt's NG tube and begin the pt on CL. I removed the pt's NG tube and gave him and his a menu to order Clear liquids.
[2024-11-04] MEDS: PROSCAR 5 MG PO (16:49)
[2024-11-04] MEDS: MAGNESIUM OXIDE 500 MG PO (16:49)
[2024-11-04] MEDS: ZENPEP DELAYED RELEASE CAPSULE 3 CAPSULE PO (16:49)
--- NOTE | 2024-11-04 17:12 | W.PN.UPDATE ---
Update Note
Progress Note Update
11/04- UGI/SBFT-
No fluoroscopic evidence for a small bowel obstruction. Patent gastrojejunal anastomosis.
to trial clear-- advance diet as tolerated, + stools
call back GI if any other issues. f/u with Dr. garay in office
[2024-11-04 17:14] LABS: Glucose - Point of Care 96 mg/dl (70-99)
[2024-11-04] MEDS: FEOSOL 325 MG PO (19:59)
[2024-11-04] MEDS: TRANDATE 400 MG PO (19:59)
[2024-11-04 21:13] LABS: Glucose - Point of Care 84 mg/dl (70-99)
--- NOTE | 2024-11-04 21:31 | W.PN.UPDATE ---
Update Note
Progress Note Update
~ 21:00 TT received from RN, patient came out into hallway for a walk and said he was feeling off. Accu check 89. BP 84/39. Restarted cardiac medications today.
Evaluated patient, laying in bed, states he feels much better, symptoms resolved. Stated he just had bowel movement in bathroom and was going for a walk when he felt he was going to pass out when he left his room. Rechecked vital signs: BP 120/60,
HR 58, MAP 80, 98 RA, Resp 16, afebrile. Monitor BP/HR overnight. 3 am repeat BP 139/78, HR 69, Resp 18, 96% on room air, temp 97.7, no further events per RN, patient sleeping on follow up.
[2024-11-04] MEDS: MIRAPEX, GENERIC 0.5 MG PO (21:42)
[2024-11-04] MEDS: ZOLOFT 50 MG PO (21:42)
[2024-11-05 03:48] VITALS: BP 139/78
[2024-11-05] MEDS: SYNTHROID 150 MCG PO (05:45)
--- NOTE | 2024-11-05 07:36 | W.PN.HOSP.TC ---
Today's Communication/Plan
-
Advance diet. Discharge planning
Assessment / Plan
Assessment / Plan
General: Well Developed, Well Nourished, No Apparent Distress, Comfortable and Conversant
HEENT: NormoCephalic, Anicteric and Moist mucous membranes,+NGT
Respiratory: Clear
Cardiac: S1/S2 and Murmur
GI: Non Tender, less distended
Musculoskeletal: No Edema
Neuro: AO x 3 and No Motor Deficits
Psych: Calm
A/P:
Abdominal pain, concern for small bowel obstruction with abdominal distention
- CT with small bowel obstruction, moderate amount of stool in colon.
Off NG tube
Surgery following
On clear liquid diet--> will advance to low residue diet today
Small bowel follow-through came back unremarkable
Vasovagal event overnight
Blood pressure fluctuates
Continue checking orthostatic
Monitor for now-he does not want any more IV fluids and will reevaluate without it
IDDM with home insulin pump
multiple hypoglycemic episode night prior to hospitalization
Continue to monitor sugar
use dextrose if needed
-will continue to use his home insulin pump and monitor glucose on home sensor
#Essential HTN
Restart p.o. meds at this time
Labetalol 10 mg IV twice daily, hydralazine as needed for now
#Hypothyroidism
Resume Synthroid
GERD
IV PPI
History of restless leg syndrome
History of fibromyalgia
History of polymyalgia rheumatica
# History of pancreatic cancer status post Whipple procedure
DVT proph-SCDs
Full Code
Anticipated Discharge: Today
Subjective/Interval History
-
Date of Service: November 05, 2024
Patient feels better overall. Reviewed overnight events. No abdominal pain nausea or vomiting.
Objective Data
-
Labs:
Laboratory Results
11/05/24
06:50
WBC Pending
Hgb Pending
Hct Pending
Plt Count Pending
Sodium Pending
Potassium Pending
Chloride Pending
Carbon Dioxide Pending
BUN Pending
Creatinine Pending
Glucose Pending
Calcium Pending
Vital Signs:
Vital Signs
Temp Pulse Resp BP Pulse Ox
97.7 F 60 18 139/78 96
11/05/24 03:48 11/05/24 03:48 11/05/24 03:48 11/05/24 03:48 11/05/24 03:48
I&O
11/04/24 11/05/24 11/06/24
06:59 06:59 06:59
Intake Total 800 / 800 960 / 960 480 / 480
Output Total 450 / 450
Balance 350 / 350 960 / 960 480 / 480
[2024-11-05 07:50] VITALS: BP 145/76
--- NOTE | 2024-11-05 07:53 | W.PN.GS2 ---
Addendum entered and electronically signed by Armen Allen MD 11/05/24 11:33:
Patient seen and examined in follow-up with surgical instrument repair specialist. Agree with documented progress note with additions noted here.
Patient feeling well and tolerating liquid diet.
Numerous loose bowel movements after small bowel follow-through study.
No abdominal pain, appetite returning.
AFVSS
NAD AAO x 3
ABD: Soft, nondistended, minimal to no tenderness on palpation. No rebound rigidity or guarding.
A/P: 78-year-old male with resolving PSBO likely secondary to adhesions given past surgical history
Low residue diet
Discharge home from surgical standpoint if tolerates p.o. challenge.
Dietary counseling provided
Original Note:
Today's Communication / Plan
-
Plan reviewed with attending
Assessment / Plan
-
78 yo M with a H of anxiety/depression, HTN, hypothyroidism, BPH, and pancreatic cancer s/p Whipple procedure c/b positive margins with subsequent total pancreatectomy in 2011 c/b IDDM here for SBO. Symptoms of SBO clinically and radiographically
per SBFT resolved. Pt ate clear diet yesterday and is looking forward to solid food today.
Plan
Advance to low res diet
If diet goes well today, can discharge from surgical perspective
Subjective Data
-
Date of Service: November 05, 2024
In terms of his abdomen today, Mr. Beck reports no discomfort. He said that his liquid diet went well yesterday and he is looking forward to a solid diet today. Denies nausea, vomiting, fever, chills. He had a BM yesterday and continues to urinate
normally. Pt restarted PO medication yesterday.
Last night at 9pm, pt had a presyncopal episode after a large BM. He was near the nurses station and got suddenly light headed with BP 84/39. After lying down and drinking some juice, he reports resolution of symptoms and retest BP 120/60.
Objective Data
-
Intake and Output
11/04/24 11/05/24 11/06/24
06:59 06:59 06:59
Intake Total 800 / 800 960 / 960 480 / 480
Output Total 450 / 450
Balance 350 / 350 960 / 960 480 / 480
Intake:
Oral fluids 960 / 960 480 / 480
IV fluids (Total) 800 / 800
Output:
Gastrointestinal tube output ( 450 / 450
Total)
Irion Sump 100 / 100
Other:
Number of approximated MODERATE 6 4 4
amounts of urine
Number of approximated LARGE 2
amounts of urine
Vital Signs
Temp Pulse Resp BP Pulse Ox
97.7 F 60 18 139/78 96
11/05/24 03:48 11/05/24 03:48 11/05/24 03:48 11/05/24 03:48 11/05/24 03:48
Calcium 9.4 mg/dl (8.4-10.2) 11/04/24 06:44
Magnesium 1.6 mg/dl (1.6-2.3) 11/04/24 06:44
Total Bilirubin 0.7 mg/dl (0.2-1.3) 11/03/24 02:42
AST 39 U/L (17-59) 11/03/24 02:42
ALT 37 U/L (0-50) 11/03/24 02:42
Alkaline Phosphatase 63 U/L (38-126) 11/03/24 02:42
Total Protein 8.2 g/dl (6.3-8.2) 11/03/24 02:42
Albumin 4.6 g/dl (3.5-5.0) 11/03/24 02:42
Physical Exam
-
General: Well Developed, No Apparent Distress and Comfortable
HEENT: Normocephalic, Anicteric and Atraumatic
Respiratory: Non Labored Respirations
GI: Soft, Non Tender, Well healed, old incision, NG removed. Nonperitoneal, distension compared to admission resolved
Musculoskeletal: No Edema
Skin: Warm and Dry
Neuro: AO x 3 and Nonfocal/Grossly Intact
Patient has a dean catheter: No
Patient has a central line: No
[2024-11-05 08:16] LABS: Glucose - Point of Care 174 mg/dl (70-99)
[2024-11-05] MEDS: PT'S OWN INSULIN PUMP - NovoLOG 1 UNIT SC ×2 (08:20→16:45)
[2024-11-05] MEDS: PROTONIX IV 40 MG IV (08:21)
[2024-11-05] MEDS: TRANDATE 400 MG PO ×2 (08:22→20:53)
[2024-11-05] MEDS: FEOSOL 325 MG PO ×2 (08:22→20:53)
[2024-11-05] MEDS: NORVASC 5 MG PO (08:22)
[2024-11-05] MEDS: COZAAR 100 MG PO (08:22)
[2024-11-05] MEDS: VITAMIN D3 (cholecalciferol) 250 MCG PO (08:22)
[2024-11-05 08:24] LABS: Hematocrit 43.7 % (39.0-52.0); Hemoglobin 14.3 g/dL (13.0-18.0); Mean Corp Hgb Conc. 32.7 g/dL (33.0-37.0); Mean Corpuscular Volume 93.0 fL (80.0-94.0); Nucleated Red Blood Cells % 0 % (-); Platelet Count 300 10^3/uL (130-400); Red Cell Dist. Width 13.4 % (11.5-14.5)
[2024-11-05] MEDS: ZENPEP DELAYED RELEASE CAPSULE 3 CAPSULE PO ×3 (08:25→16:54)
--- NOTE | 2024-11-05 08:37 | PTCARENOTE ---
pt had refused getting fluids yesterday and today, will message the MD to get the fluids DC'd
[2024-11-05 09:02] LABS: Blood Urea Nitrogen 29 mg/dl (9-20); Calcium 9.0 mg/dl (8.4-10.2); Carbon Dioxide 31 mmol/L (22-30); Chloride 100 mmol/L (98-107); Estimated Creatinine Clearance 63 ml/min; Glucose 104 mg/dl (70-99); Potassium 3.4 mmol/L (3.5-5.1); Sodium 137 mmol/L (135-145); eGFR > 60.00
[2024-11-05] MEDS: KCL 40 MEQ PO (10:59)
[2024-11-05 11:06] LABS: Glucose - Point of Care 206 mg/dl (70-99)
[2024-11-05] MEDS: PT'S OWN INSULIN PUMP - NovoLOG 2 UNIT SC (11:06)
[2024-11-05 11:28] VITALS: BP 144/69
--- NOTE | 2024-11-05 15:39 | CM ---
CM reviewed chart, patient seen bedside, reports no needs to CM upon discharge. Patient confirms transportation home. IMM reviewed, signed, placed in chart, patient provided with copy. CM will continue to follow for all discharge planning needs.
Plan; home no needs
[2024-11-05 15:42] VITALS: BP 95/58
[2024-11-05 16:40] LABS: Glucose - Point of Care 181 mg/dl (70-99)
[2024-11-05] MEDS: MAGNESIUM OXIDE 500 MG PO (16:54)
[2024-11-05] MEDS: PROSCAR 5 MG PO (16:54)
[2024-11-05 19:59] VITALS: BP 166/86
[2024-11-05] MEDS: MIRAPEX, GENERIC 0.5 MG PO (20:54)
[2024-11-05] MEDS: ZOLOFT 50 MG PO (20:54)
[2024-11-05 21:34] LABS: Glucose - Point of Care 148 mg/dl (70-99)
[2024-11-05] MEDS: PT'S OWN INSULIN PUMP - NovoLOG SC (22:09)
[2024-11-05 23:10] VITALS: BP 161/78
[2024-11-06] VITALS (11 sets, daily range): BP systolic 80–160; BP diastolic 43–98; PULSE 55; O2SAT 98
[2024-11-06] MEDS: SYNTHROID 150 MCG PO (05:09)
[2024-11-06] MEDS: FEOSOL 325 MG PO ×2 (07:58→21:25)
[2024-11-06] MEDS: TRANDATE 400 MG PO ×2 (07:58→21:27)
[2024-11-06] MEDS: PROTONIX IV 40 MG IV (07:59)
[2024-11-06] MEDS: VITAMIN D3 (cholecalciferol) 250 MCG PO (07:59)
--- NOTE | 2024-11-06 08:04 | W.PN.HOSP.TC ---
Addendum entered and electronically signed by Jesse Preston MD 11/06/24 13:03:
Hypokalemia
Original Note:
Today's Communication/Plan
-
Midodrine. Discharge planning
Assessment / Plan
Assessment / Plan
General: Well Developed, Well Nourished, No Apparent Distress, Comfortable and Conversant
HEENT: NormoCephalic, Anicteric and Moist mucous membranes,+NGT
Respiratory: Clear
Cardiac: S1/S2 and Murmur
GI: Non Tender, less distended
Musculoskeletal: No Edema
Neuro: AO x 3 and No Motor Deficits
Psych: Calm
A/P:
Abdominal pain, concern for small bowel obstruction with abdominal distention
- CT with small bowel obstruction, moderate amount of stool in colon.
Off NG tube
Surgery following
On low residue diet
Small bowel follow-through came back unremarkable
Surgery cleared him for discharge
Plan for discharge either later today or in am
Vasovagal event due to orthostatic with recurrent episodes
Blood pressure fluctuates--> I had lengthy discussion with patient and he needs his antihypertensives for his supine hypertension but will need some holding parameters as discussed with him, on the other hand he also will need midodrine for
orthostatic hypotension and will have him on some specific parameters attritional to hold.
Continue checking orthostatics
IDDM with home insulin pump
multiple hypoglycemic episode night prior to hospitalization
Continue to monitor sugar
use dextrose if needed
-will continue to use his home insulin pump and monitor glucose on home sensor
#Essential HTN
Restart p.o. meds at this time
Discontinue IV antihypertensives as needed and allow permissive hypertension
#Hypothyroidism
Resume Synthroid
GERD
IV PPI
History of restless leg syndrome
History of fibromyalgia
History of polymyalgia rheumatica
# History of pancreatic cancer status post Whipple procedure
DVT proph-SCDs
Full Code
Anticipated Discharge: Today
Subjective/Interval History
-
Date of Service: November 06, 2024
Patient had another episode of hypotension this morning and required some fluids and midodrine. He took all his antihypertensive medications. Looks well by the time of my reevaluation.
Objective Data
-
Labs:
Laboratory Results
11/06/24
07:46
WBC Pending
Hgb Pending
Hct Pending
Plt Count Pending
Sodium Pending
Potassium Pending
Chloride Pending
Carbon Dioxide Pending
BUN Pending
Creatinine Pending
Glucose Pending
Calcium Pending
Vital Signs:
Vital Signs
Temp Pulse Resp BP Pulse Ox
98.1 F 53 16 155/98 97
11/06/24 07:55 11/06/24 07:55 11/06/24 07:55 11/06/24 07:55 11/06/24 07:55
I&O
11/05/24 11/06/24 11/07/24
06:59 06:59 06:59
Intake Total 960 / 960 1620 / 1620
Balance 960 / 960 1620 / 1620
[2024-11-06 08:12] LABS: Glucose - Point of Care 131 mg/dl (70-99)
[2024-11-06] MEDS: ZENPEP DELAYED RELEASE CAPSULE 3 CAPSULE PO ×3 (08:13→16:45)
[2024-11-06] MEDS: PT'S OWN INSULIN PUMP - NovoLOG 1 UNIT SC ×2 (08:15→12:46)
[2024-11-06 08:21] LABS: Hematocrit 41.1 % (39.0-52.0); Hemoglobin 13.8 g/dL (13.0-18.0); Mean Corp Hgb Conc. 33.6 g/dL (33.0-37.0); Mean Corpuscular Volume 92.2 fL (80.0-94.0); Nucleated Red Blood Cells % 0 % (-); Platelet Count 263 10^3/uL (130-400); Red Cell Dist. Width 13.2 % (11.5-14.5)
[2024-11-06 08:56] LABS: Blood Urea Nitrogen 29 mg/dl (9-20); Calcium 8.5 mg/dl (8.4-10.2); Carbon Dioxide 28 mmol/L (22-30); Chloride 103 mmol/L (98-107); Estimated Creatinine Clearance 57 ml/min; Glucose 106 mg/dl (70-99); Potassium 3.5 mmol/L (3.5-5.1); Sodium 136 mmol/L (135-145); eGFR > 60.00
--- NOTE | 2024-11-06 09:40 | PTCARENOTE ---
11/06- Patient c/o dizziness upon standing when he stood to sit in the chair. HR=85, POX=99% and BP=80/43 automatic on LUE in sitting position. Attempted to get a standing BP for orthostatics, but patient was unable to stand too long due to
dizziness. BP after sitting again was 88/50, HR=87. Administered PRN Midodrine as ordered. Notified Physician. Began daily Orthostatic BP checks. Continue to monitor.
[2024-11-06] MEDS: NSS 500 IV (11:02)
--- NOTE | 2024-11-06 11:24 | W.PN.GS2 ---
Today's Communication / Plan
-
Plan reviewed with attending
Assessment / Plan
-
78 yo M with a PMH of anxiety/depression, HTN, hypothyroidism, BPH, and pancreatic cancer s/p Whipple procedure c/b positive margins with subsequent total pancreatectomy in 2011 c/b IDDM here for SBO. Symptoms of SBO clinically and radiographically
resolved. Pt ate solid food yesterday with no complaints.
Plan
Discharge from surgical perspective
Subjective Data
-
Date of Service: November 06, 2024
Mr. Beck reports no discomfort. He said that his solid diet went well yesterday. Denies nausea, vomiting, fever, chills.
Objective Data
-
Intake and Output
11/05/24 11/06/24 11/07/24
06:59 06:59 06:59
Intake Total 960 / 960 1620 / 1620 240 / 240
Balance 960 / 960 1620 / 1620 240 / 240
Intake:
Oral fluids 960 / 960 1620 / 1620 240 / 240
Other:
Number of approximated MODERATE 4 3
amounts of urine
Vital Signs
Temp Pulse Resp BP Pulse Ox
98.1 F 82 16 90/58 98
11/06/24 07:55 11/06/24 11:00 11/06/24 07:55 11/06/24 11:00 11/06/24 08:00
Lab Results
11/06/24 07:46
11/06/24 07:46
Calcium 8.5 mg/dl (8.4-10.2) 11/06/24 07:46
Magnesium 1.6 mg/dl (1.6-2.3) 11/04/24 06:44
Total Bilirubin 0.7 mg/dl (0.2-1.3) 11/03/24 02:42
AST 39 U/L (17-59) 11/03/24 02:42
ALT 37 U/L (0-50) 11/03/24 02:42
Alkaline Phosphatase 63 U/L (38-126) 11/03/24 02:42
Total Protein 8.2 g/dl (6.3-8.2) 11/03/24 02:42
Albumin 4.6 g/dl (3.5-5.0) 11/03/24 02:42
Physical Exam
-
General: Well Developed, No Apparent Distress and Comfortable
HEENT: Normocephalic, Anicteric and Atraumatic
Respiratory: Non Labored Respirations
GI: Soft, Non Tender, Well healed, old incision, NG removed. Nonperitoneal, nondistended.
Musculoskeletal: No Edema
Skin: Warm and Dry
Neuro: AO x 3 and Nonfocal/Grossly Intact
Patient has a dean catheter: No
Patient has a central line: No
--- NOTE | 2024-11-06 11:25 | CM ---
CM reviewed chart, patient seen bedside, reports no needs to CM at this time. Plan remains home no needs when stable. CM will continue to follow for all discharge planning needs.
Plan; home no needs when stable
--- NOTE | 2024-11-06 12:05 | PTCARENOTE ---
11/06- Patient states dizziness has subsided. BP S/P bolus and PRN Midodrine was 130/98. Will continue to monitor.
[2024-11-06 12:16] LABS: Glucose - Point of Care 131 mg/dl (70-99)
--- NOTE | 2024-11-06 12:55 | PN.CDI ---
CDI
- -
CDI:
Physician Documentation Request
Admit Date: 11/03/24 08:04
Dear Doctor Mohan,
Clinical Indicators:
Patient admitted with concern for small bowel obstruction
7/10 Potassium chloride 40 meq PO x 1 ordered.
Potassium levels:
11/04/24 11/05/24
06:44 06:50
Potassium 3.4 L 3.4 L
Based on the above, could you clarify in the progress notes, the appropriate diagnosis, if significant, that supports the above abnormalities and additional evaluation, monitoring and/or treatment rendered:
Hypokalemia, resolved
Abnormal lab value, clinically insignificant
Other, please specify
Use of terms such as suspected, likely, concern for, or probable (associated with a specific diagnosis that is being evaluated, monitored, or treated as if it exists) are acceptable and can be coded in the inpatient setting, when documented at the
time of discharge.
Thank you,
MADHU Vigil RN
CDI Specialist
available via tiger text
Please use your independent medical judgment in providing your response.
[2024-11-06] MEDS: PT'S OWN INSULIN PUMP - NovoLOG 2 UNIT SC (16:49)
[2024-11-06 17:08] LABS: Glucose - Point of Care 192 mg/dl (70-99)
[2024-11-06] MEDS: PROSCAR 5 MG PO (17:27)
[2024-11-06] MEDS: MAGNESIUM OXIDE 500 MG PO (17:27)
[2024-11-06] MEDS: MIRAPEX, GENERIC 0.5 MG PO (21:26)
[2024-11-06] MEDS: ZOLOFT 50 MG PO (21:26)
[2024-11-06] MEDS: NORVASC 5 MG PO (21:26)
[2024-11-06 21:40] LABS: Glucose - Point of Care 162 mg/dl (70-99)
[2024-11-06] MEDS: PT'S OWN INSULIN PUMP - NovoLOG SC (21:43)
[2024-11-07 03:43] VITALS: BP 156/82
[2024-11-07] MEDS: SYNTHROID 150 MCG PO (06:06)
[2024-11-07] MEDS: COZAAR 100 MG PO (07:24)
[2024-11-07] MEDS: PROTONIX 40 MG PO (07:24)
[2024-11-07] MEDS: VITAMIN D3 (cholecalciferol) 250 MCG PO (07:24)
[2024-11-07] MEDS: ZENPEP DELAYED RELEASE CAPSULE 3 CAPSULE PO ×2 (07:25→11:13)
[2024-11-07] MEDS: FEOSOL 325 MG PO (07:25)
[2024-11-07] MEDS: NORVASC 5 MG PO (07:25)
[2024-11-07 07:30] VITALS: BP 165/84
[2024-11-07] MEDS: TRANDATE PO (07:30)
[2024-11-07 07:39] LABS: Hematocrit 39.5 % (39.0-52.0); Hemoglobin 13.2 g/dL (13.0-18.0); Mean Corp Hgb Conc. 33.4 g/dL (33.0-37.0); Mean Corpuscular Volume 92.5 fL (80.0-94.0); Platelet Count 270 10^3/uL (130-400); Red Cell Dist. Width 13.2 % (11.5-14.5)
[2024-11-07 07:49] LABS: Glucose - Point of Care 93 mg/dl (70-99)
--- NOTE | 2024-11-07 08:02 | W.PN.HOSP.TC ---
Today's Communication/Plan
-
Discharge planning today
Assessment / Plan
Assessment / Plan
General: Well Developed, Well Nourished, No Apparent Distress, Comfortable and Conversant
HEENT: NormoCephalic, Anicteric and Moist mucous membranes,+NGT
Respiratory: Clear
Cardiac: S1/S2 and Murmur
GI: Non Tender, less distended
Musculoskeletal: No Edema
Neuro: AO x 3 and No Motor Deficits
Psych: Calm
A/P:
Abdominal pain, concern for small bowel obstruction with abdominal distention
- CT with small bowel obstruction, moderate amount of stool in colon.
Off NG tube
Surgery following
On low residue diet
Small bowel follow-through came back unremarkable
Plan to discharge today
Vasovagal event due to orthostatic with recurrent episodes
Last episode yesterday morning. Today he has been asymptomatic.
Prior to today:
Blood pressure fluctuates--> I had lengthy discussion with patient and he needs his antihypertensives for his supine hypertension but will need some holding parameters as discussed with him, on the other hand he also will need midodrine for
orthostatic hypotension and will have him on some specific parameters attritional to hold.
Continue checking orthostatics
IDDM with home insulin pump
multiple hypoglycemic episode night prior to hospitalization-discussed about triggers and etiology of presentation.
Continue to monitor sugar
use dextrose if needed
-will continue to use his home insulin pump and monitor glucose on home sensor
#Essential HTN
Restarted p.o. meds at this time
Discontinue IV antihypertensives as needed and allow permissive hypertension
#Hypothyroidism
Resumed Synthroid
GERD
IV PPI--> switched to oral
History of restless leg syndrome
History of fibromyalgia
History of polymyalgia rheumatica
# History of pancreatic cancer status post Whipple procedure
DVT proph-SCDs
Full Code
Anticipated Discharge: Today
Subjective/Interval History
-
Date of Service: November 07, 2024
Patient feels better overall today. Heart rate slightly bradycardic but asymptomatic and on beta-cody. Afebrile
Objective Data
-
Labs:
Laboratory Results
11/07/24
06:49
WBC 8.7
Hgb 13.2
Hct 39.5
Plt Count 270
Sodium Pending
Potassium Pending
Chloride Pending
Carbon Dioxide Pending
BUN Pending
Creatinine Pending
Glucose Pending
Calcium Pending
Vital Signs:
Vital Signs
Temp Pulse Resp BP Pulse Ox
98.3 F 50 16 165/84 97
11/07/24 03:43 11/07/24 07:30 11/07/24 03:43 11/07/24 07:30 11/07/24 03:43
I&O
11/06/24 11/07/24 11/08/24
06:59 06:59 06:59
Intake Total 1620 / 1620 720 / 720
Balance 1620 / 1620 720 / 720
[2024-11-07 08:11] LABS: Blood Urea Nitrogen 27 mg/dl (9-20); Calcium 8.7 mg/dl (8.4-10.2); Carbon Dioxide 32 mmol/L (22-30); Chloride 103 mmol/L (98-107); Estimated Creatinine Clearance 70 ml/min; Glucose 100 mg/dl (70-99); Potassium 3.4 mmol/L (3.5-5.1); Sodium 140 mmol/L (135-145); eGFR > 60.00
[2024-11-07] MEDS: PT'S OWN INSULIN PUMP - NovoLOG SC (08:36)
[2024-11-07 11:00] VITALS: BP 130/80
[2024-11-07] MEDS: KCL 40 MEQ PO (11:13)
--- NOTE | 2024-11-07 11:41 | CM ---
CM reviewed chart, patient for discharge today. Patient denies needs from CM, confirms will provide transport home. IMM signed, placed in chart. CM will continue to follow for all discharge planning needs.
Plan; home no needs
--- NOTE | 2024-11-07 13:45 | W.DCSUMMARY ---
Discharge Summary
Discharge Data
Date of Admission: 11/03/24
Date of Discharge: 11/07/24
Total time spent discharging patient (in min): 34
-
Pending Results: No
Hospital Course
Patient 78 years old male history of hypertension, IPMN with HGD s/p Whipple, diabetes mellitus, came into the hospital abdominal pain and found to have small bowel obstruction. He was initially placed n.p.o., NG tube, serial images on his abdomen.
Surgery consulted. Patient did well rest of hospital stay and had an SBFT/UGI without significant obstruction. His diet was advanced and he tolerated well. He did have an episode of orthostatic hypotension and some of his blood pressure
medications held initially but later on we were able to restart his medications without any problems. Patient subsequently developed some orthostatic hypotension. We needed to start him on midodrine. Lengthy discussion about using
antihypertensives and using midodrine with holding parameters for both sets. No further episodes of vasovagal and orthostatic but further instructions upon discharge. Otherwise, patient feeling much better and he will be discharged in relatively
stable condition today.
Discharge duration: 34 minutes
Discharge Plan
-
Patient Disposition: Home (Routine Discharge)
Discharge Diagnosis/Procedures: Small bowel obstruction. Orthostatic hypotension. Hypertension.
Condition: Good
Diet: Low Residue
Additional Diets: Advance to regular diet in 1 to 2 weeks
Activity: As tolerated
Blood Work: Please PCP to order CBC, BMP within 1 week
Referrals:
Ranjit Esqueda MD [Active, Gastroenterology]
Referral Note: call to arrange 6-8 week follow up. call office for any recurrent issue and return to ER for vomiting, pain or worsening problems.
Deep Bell MD [Family Provider, Family Practice] - in less than 1 week
Additional Discharge Medication Instructions: Check blood pressure regularly. If systolic blood pressure less than 110 hold hypertension medications (amlodipine, chlorthalidone, labetalol, and losartan). If systolic blood pressure is more than 150
hold midodrine.
Prescriptions:
New
midodrine 5 mg Tablet
5 mg PO TID@0800,1300,1800 30 Days Qty: 90 0RF
Rx Instructions:
Hold medication if systolic blood pressure more than 150.
Continued
labetalol 200 MG tablet
400 mg PO BID
sertraline 50 MG tablet
50 mg PO HS
therapeutic multivitamin Tablet
1 tab PO HS
potassium chloride 10 mEq Tablet Extended Release
30 meq PO BID
amlodipine [Norvasc] 5 mg Tablet
5 mg PO BID
chlorthalidone 50 mg Tablet
50 mg PO DAILY
pramipexole 0.5 mg Tablet
0.5 mg PO HS
ferrous sulfate 325 mg (65 mg iron) Tablet
325 mg PO BID
levothyroxine [Synthroid] 150 mcg Tablet
150 mcg PO MoTuWeThFrSa@0800
levothyroxine [Synthroid] 150 mcg Tablet
225 mcg PO NESS@0800
losartan 100 mg Tablet
100 mg PO DAILY
finasteride 5 mg Tablet
5 mg PO QPM
magnesium oxide 500 mg Capsule
500 mg PO QPM
magnesium oxide 500 mg Capsule
1,000 mg PO DAILY
omeprazole 20 mg Tablet,Delayed Release (Dr/Ec)
20 mg PO DAILY
cholecalciferol (vitamin D3) [Vitamin D3] 125 mcg (5,000 unit) Tablet
250 mcg PO DAILY
Creon 24,000-76,000 -120,000 unit Capsule,Delayed Release(Dr/Ec)
3 cap PO AC
mecobal-levomefolat Ca-B6 phos 2-3-35 mg Tablet
1 tab PO BID
coQ10 (ubiquinol) 100 mg Capsule
100 mg PO HS
Fish Oil 1,600-500-800 mg/5 mL Liquid
15 ml PO DAILY
Patient Own Insulin Pump
1 sliding scale dose SC .NOVOLOG
Discharge Orders:
Discharge Patient (As Directed); Ordered 11/07/24
Ordered By: Jesse Preston
Discharge Date and Time
Discharge Date/Time: 11/07/24 12:20
Print Language: FRISIAN
== END 2024-11-07 12:20 | disposition home or self-care (01) | DRG 390 ==
LOC: 4 WEST ACU 08:04
PROVIDERS: Internal Medicine; ADMITTING PHYSICIAN Internal Medicine; ATTENDING PHYSICIAN Hospitalist; CONSULT PHYSICIAN Internal Medicine; CONSULT PHYSICIAN Surgery; EMERGENCY PHYSICIAN Emergency Medicine; FAMILY PHYSICIAN Family Medicine
PROC: 0D9670Z Drainage of Stomach with Drainage Device, Via Natural or Artificial Opening (ICD-10-PCS; 2024-11-03)
DX: K56.51 Intestinal adhesions [bands], with partial obstruction (principal); I10 Essential (primary) hypertension; E03.9 Hypothyroidism, unspecified; M79.7 Fibromyalgia; G25.81 Restless legs syndrome; M35.3 Polymyalgia rheumatica; N40.0 Benign prostatic hyperplasia without lower urinary tract symptoms; M10.9 Gout, unspecified; F41.9 Anxiety disorder, unspecified; F32.A Depression, unspecified; K21.9 Gastro-esophageal reflux disease without esophagitis; D72.829 Elevated white blood cell count, unspecified; E11.649 Type 2 diabetes mellitus with hypoglycemia without coma; I95.1 Orthostatic hypotension; E87.6 Hypokalemia; Z96.41 Presence of insulin pump (external) (internal); Z79.4 Long term (current) use of insulin; Z85.07 Personal history of malignant neoplasm of pancreas; Z88.6 Allergy status to analgesic agent; Z88.1 Allergy status to other antibiotic agents; Z88.5 Allergy status to narcotic agent; Z88.8 Allergy status to other drugs, medicaments and biological substances; Z79.82 Long term (current) use of aspirin; Z79.890 Hormone replacement therapy; Z90.49 Acquired absence of other specified parts of digestive tract; Z87.891 Personal history of nicotine dependence; Z90.81 Acquired absence of spleen; Z90.411 Acquired partial absence of pancreas; Z86.0100 Personal history of colon polyps, unspecified; Z87.19 Personal history of other diseases of the digestive system
CPT/HCPCS: 43752; 74018; 74176; 74240; 74248; 80048; 80053; 82962; 83036; 83735; 85025; 85027; 97162; 99285

== ENCOUNTER → 2024-11-20 12:55 | Outpatient (REF) | payer OTHER, SELFPAY | LOC: HWRCS 12:55 | PROVIDERS: ATTENDING PHYSICIAN Internal Medicine Cardiovascular Disease; FAMILY PHYSICIAN Family Medicine | DX: R01.1 Cardiac murmur, unspecified (principal) | CPT/HCPCS: 93306 ==